=== PATIENT | female | born 2000 | race Two or more races ===

== ENCOUNTER 2021-10-21 15:31 | Emergency (ER) | payer OTHER, SELFPAY ==
[2021-10-21 15:34] VITALS: BP 127/87; PULSE 93; RESP 14; TEMP 36.6; O2SAT 98; BMI 23.1
--- NOTE | 2021-10-21 15:45 | EX.ED.UPPERE ---
HPI History of Present Illness Chief Complaint: Upper Extremity Injury Narrative Narrative: 21-year-old female presenting with right shoulder and right elbow pain. She states she was going through a door at work while carrying some equipment and injured her right shoulder and elbow. She does not remember falling on it. She states that she is now having trouble extending and flexing her fingers. She denies any hand pain, wrist pain, forearm pain. Patient states that she did not hit her head or lose consciousness but does state that she has a very bad memory most of the time. She states that she has not taken anything for pain and does not want anything. PFSH PFS Medical History no medical history Home Medications NK 10/21/21 [History Last Taken Unknown] Allergy/AdvReac Type Severity Reaction Status Date / Time No Known Allergies Allergy Verified 10/21/21 15:34 Family History no significant family his Social History Smoking Status: Never smoker ROS ROS ED Constitutional Constitutional ED: Denies chills, fever(s) or sweats Eyes Eyes: Denies blurry vision or change in vision ENT ENT ED: Denies ear pain or sore throat Cardiovascular Cardiovascular: Denies chest pain, palpitations or racing heartbeat Respiratory/Chest Respiratory/Chest: Denies cough, dyspnea or sputum Gastrointestinal Gastrointestinal: Denies abdominal pain, constipation, diarrhea, nausea or vomiting Genitourinary Genitourinary ED: Denies dysuria, hematuria or urinary frequency Musculoskeletal Musculoskeletal: Reports other Details: Right shoulder and right elbow pain ; Denies arthralgias Integumentary Denies abscess, Abrasions or rash Neurologic Neurologic: Denies headache(s), paresthesias or weakness Psychiatric Psychiatric: Denies anxiety, depression, suicidal ideation or suicidal thoughts Endocrine Endocrinology: Denies polydipsia or polyuria EXAM Physical Exam Const Vital Signs: 10/21/21 15:34 Temperature 98 F Temperature Source Temporal Pulse Rate 93 Respiratory Rate 14 Blood Pressure 127/87 H Blood Pressure Mean 100 Pulse Ox 98 Oxygen Delivery Method Room Air Positive well nourished General Appearance ED: NAD HEENT Reports moist mucous membranes normocephalic and atraumatic Eyes PERRL and EOMs intact bilaterally Resp normal respiratory effort Cardio regular rate and regular rhythm Extremity Extremity Narrative: Mild over the left to palpation over the right deltoid. No pain in the shoulder girdle. The right shoulder has full range of motion. No pain over the trapezius or the cervical spine. There is tenderness over the right olecranon. No tenderness over the radial head. No significant swelling or deformity. Radial pulse 2+. Brisk cap refill all 5 fingers. When patient's fingers are extended she is able to hold them extended. When they are flexed he is notable to hold them flexed. Neuro oriented x3 and CN's II-XII intact bilaterally Sensorium / Orientation: alert Psych mental status grossly normal Skin Lesions: no lesions Rashes: no rashes MDM MDM MDM Narrative Medical decision making narrative: 21-year-old female presenting with right elbow contusion. I obtained x-rays of the right shoulder and elbow because this is where her pain was and on my interpretation is no acute fracture or subluxation. She declined analgesia in the ER. I will place her in a splint. She can follow-up with occupational health. Patient counseled that although she has never fracture it may take a while for the nerve palsy to heal. Impression: 1. Right shoulder strain 2. Right elbow contusion 3. Right radial nerve palsy Discharge Plan Triage Chief Complaint: Upper Extremity Injury ED Provider: Omari Pugh Dx/Rx/DC Orders Instructions: ED Contusion, Elbow, ED Radial Nerve Palsy Prescriptions: No Action NK RF: 0 Primary Care Provider: Care Physician,No Primary Referrals: Care Physician,No Primary [Primary Care Provider] - Clinic,NOW [NON-STAFF] - 3-5 Days Disposition Disposition: Home, Self Care
--- NOTE | 2021-10-21 16:00 | RAD_ITS ---
STUDY: X-RAY - RIGHT SHOULDER REASON FOR EXAM: Female, 21 years old. pain TECHNIQUE: 2 view(s) of the shoulder. COMPARISON: None. FINDINGS: Normal glenohumeral articulation. Normal acromioclavicular joint. Normal acromion. Normal humeral head and visualized proximal humerus. The soft tissue structures are unremarkable. Normal visualized pulmonary apex. RAD/Shoulder min 2 Views IMPRESSION: Normal x-ray examination of the shoulder. Electronically Signed: Dhaval Ferrell MD at 16:42 EDT ,
--- NOTE | 2021-10-21 16:00 | RAD_ITS ---
STUDY: X-RAY - RIGHT ELBOW REASON FOR EXAM: Female, 21 years old. pain TECHNIQUE: 3 view(s) of the elbow. COMPARISON: None. FINDINGS: Normal visualized humerus, radius and ulna. Normal radiocapitellar and ulnotrochlear articulations. The soft tissue structures are unremarkable. RAD/Elbow min 3 Views IMPRESSION: Normal x-ray examination of the elbow. Electronically Signed: Dhaval Ferrell MD at 16:43 EDT ,
== END 2021-10-21 17:37 | disposition home or self-care (01) ==
PROVIDERS: Emergency Provider Student in an Organized Health Care Education/Training Program; Visit Provider Student in an Organized Health Care Education/Training Program
DX: S46.911A Strain of unspecified muscle, fascia and tendon at shoulder and upper arm level, right arm, initial encounter (principal); S50.01XA Contusion of right elbow, initial encounter; G56.31 Lesion of radial nerve, right upper limb; X58.XXXA Exposure to other specified factors, initial encounter
CPT/HCPCS: 73030; 73080; 99283

== ENCOUNTER 2021-12-05 00:46 | Emergency (ER) | payer OTHER, SELFPAY ==
[2021-12-05 00:47] VITALS: BP 126/78; PULSE 77; RESP 16; TEMP 36.8; O2SAT 100; BMI 24.9
[2021-12-05 01:56] LABS: Absolute Lymphocyte Count 3.53 X10^3/uL (0.83-4.51); Absolute Neutrophil Count 5.7 X10^3/uL (2.0-7.7); Basophil# 0.05 X10^3/uL; Basophil% 0.5 % (0-1); Eosinophil# 0.32 X10^3/uL; Eosinophils% 3.1 % (0-5); Hematocrit 37.2 % (37-47); Hemoglobin 12.5 g/dL (12.0-15.0); Lymphocyte # 3.53 X10^3/ul (0.83-4.51); Lymphocyte % 34.4 % (19-41); Mean Corp Hgb Conc 33.6 g/dL (32-36); Mean Corpuscular Hgb 28.5 pg (27.0-32.0); Mean Corpuscular Volume 84.7 fL (81-99); Mean Platelet Vol. 9.7 fl (6.2-12.0); Monocyte# 0.68 X10^3/uL; Monocyte% 6.6 % (0-10); NRBC Flagged by Analyzer 0 % (0-5); Neutrophil # 5.65 X10^3/uL (2.7-7.7); Neutrophil % 55.2 % (47-70); Platelet Count 304 K/mm3 (150-450); RBC Distribution Width CV 12.8 % (11.6-14.6); RBC Distribution Width SD 39.3 fl (35.1-43.9); Red Blood Count 4.39 M/mm3 (4.2-5.4); White Blood Count 10.3 K/mm3 (4.4-11.0)
--- NOTE | 2021-12-05 01:56 | RAD_ITS ---
STUDY: X-RAY CHEST REASON FOR EXAM: Female, 21 years old. cough TECHNIQUE: AP portable. 1:51 AM. COMPARISON: None. FINDINGS: LUNGS: No consolidation. Minimal reticular opacity in the left midlung and right lung base. No pneumothorax. MEDIASTINUM: Unremarkable. CARDIAC SILHOUETTE: Not enlarged. BONES AND SOFT TISSUES: No acute abnormalities. RAD/Chest 1 View (Portable) IMPRESSION: Minimal subsegmental atelectasis versus scarring bilaterally. No infiltrates. Electronically Signed: Tamiko Cartagena MD at 2:14 EDT ,
[2021-12-05 02:11] LABS: D-Dimer Quantitative (DVT/PE) < 0.27 FEU/ug/m (0.27-0.49)
[2021-12-05 02:12] LABS: Anion Gap 7 (5-15); BUN 15 mg/dL (7-18); Calcium,Total 9.1 mg/dL (8.5-10.1); Chloride 109 mmol/L (98-107); Creatinine, Serum 0.75 mg/dL (0.55-1.02); EST Glomerular Filtration Rate 105 mL/min (>60); Est Glom Filt Rate - Afr Amer 126 mL/min (>60); Estimated Creatinine Clearance 105.59 ml/min; Glucose 97 mg/dL (74-106); Magnesium 2.2 mg/dL (1.6-2.6); Potassium 3.8 mmol/L (3.5-5.1); Sodium Level 139 mmol/L (136-145)
--- NOTE | 2021-12-05 02:45 | EX.ED.DYSGE1 ---
HPI History of Present Illness Chief Complaint: General Illness Narrative Narrative: Patient is a 21-year-old female who states she was diagnosed with COVID about 1 week ago. She states she took the 5-day course of Plaxovid. She states that despite that she still having congestion and cough and intermittent bouts of shortness of breath and secondary to this comes in for evaluation. PFSH PFS Home Medications NK 10/21/21 [History Last Taken Unknown] Allergy/AdvReac Type Severity Reaction Status Date / Time No Known Allergies Allergy Verified 12/05/21 00:51 Social History Smoking Status: Never smoker ROS ROS ED Constitutional Constitutional ED: Denies chills or fever(s) ENT ENT ED: Reports rhinorrhea; Denies sore throat Cardiovascular Cardiovascular: Denies chest pain Respiratory/Chest Respiratory/Chest: Reports cough and dyspnea Gastrointestinal Gastrointestinal: Reports vomiting; Denies abdominal pain, diarrhea or nausea Genitourinary Genitourinary ED: Denies dysuria Musculoskeletal Musculoskeletal: Reports myalgias Integumentary Denies rash Neurologic Neurologic: Denies headache(s) Hematologic/Lymphatic Hematologic/Lymphatic: Denies easy bleeding or easy bruising EXAM Physical Exam Const Vital Signs: 12/05/21 00:47 12/05/21 02:17 12/05/21 03:01 Temperature 98.2 F Temperature Source Temporal Pulse Rate 77 Respiratory Rate 16 Respiratory Effort Non-Labored Respiratory Pattern Normal Blood Pressure 126/78 H 137/73 H Blood Pressure Mean 94 Pulse Ox 100 Oxygen Delivery Method Room Air Positive well nourished and well developed General Appearance ED: well developed HEENT Reports moist mucous membranes HEENT Narrative: Cobblestoning the posterior pharynx consistent with sinus drainage but no airway edema or compromise Eyes PERRL and EOMs intact bilaterally Neck supple Neck Narrative: No crepitus noted. Anterior cervical lymphadenopathy present Chest Wall palpation of chest normal Resp normal respiratory effort Resp Narrative: Breath sounds are slight diminished throughout with faint expiratory wheeze in the bilateral lobes but no nasal flaring retractions tachypnea or accessory muscle use Cardio regular rate and regular rhythm GI normal to inspection, nondistended, normoactive bowel sounds, non-tender and non-distended Auscultation: normoactive bowel sounds Palpation: soft Extremity normal to inspection Extremity Narrative: No asymmetric edema no pitting edema negative Homans' sign bilaterally Neuro oriented x3 and CN's II-XII intact bilaterally Sensorium / Orientation: alert Psych mental status grossly normal Skin no rashes or lesions noted MDM MDM MDM Narrative Medical decision making narrative: Patient presented to the ER in no acute respiratory distress satting 100% on room air. Because of her recent diagnosis of COVID and persistent symptoms I did elect to perform a basic cardiac work-up with chest x-ray. Chest x-ray revealed no acute infiltrate and the blood work revealed no clinically significant findings. On reevaluation she is resting comfortably her maintains 100% on room air. Therefore she has no signs of respiratory distress and no signs of secondary infection on top of COVID there is no need for admission and she is safe for discharge Lab Data Attestation: I reviewed the patient's lab results. Labs: Laboratory Results - last 24 hr 12/05/21 12/05/21 12/05/21 01:50 01:50 01:50 WBC 10.3 RBC 4.39 Hgb 12.5 Hct 37.2 MCV 84.7 MCH 28.5 MCHC 33.6 RDW Std Deviation 39.3 RDW Coeff of Max 12.8 Plt Count 304 MPV 9.7 Immature Gran % (Auto) 0.200 Neut % (Auto) 55.2 Lymph % (Auto) 34.4 [place] % (Auto) 6.6 Eos % (Auto) 3.1 Baso % (Auto) 0.5 Absolute Neuts (auto) 5.7 Absolute Lymphs (auto) 3.53 Nucleated RBC % 0 D-Dimer Quant (PE/DVT) < 0.27 L Sodium 139 Potassium 3.8 Chloride 109 H Carbon Dioxide 23.0 Anion Gap 7 BUN 15 Creatinine 0.75 Estim Creat Clear Calc 105.59 Est GFR (MDRD) Af Amer 126 Est GFR (MDRD) Non-Af 105 BUN/Creatinine Ratio 20.0 Glucose 97 Calcium 9.1 Magnesium 2.2 Radiography Diagnostic Testing: Clinical Impression(s) from Imaging Studies Chest X-Ray 12/05/21 01:56 IMPRESSION: Minimal subsegmental atelectasis versus scarring bilaterally. No infiltrates. Electronically Signed: Tamiko Cartagena MD at 2:14 EDT , Chest x-ray as interpreted by the emergency medicine physician reveals no acute infiltrate pneumothorax or pleural effusion Discharge Plan Triage Chief Complaint: General Illness ED Provider: Jaime Baker Dx/Rx/DC Orders Clinical Impression: COVID-19 Instructions: Coronavirus Disease 2019 (COVID-19): Caring for Yourself or Others Prescriptions: No Action NK Stand Alone Forms: ED Work / School Excuse Primary Care Provider: Care Physician,No Primary Referrals: Monserrat Gray MD [Med Staff - [employer]ination Building Inspector] - 10-14 Days if not better Care Physician,No Primary [Primary Care Provider] - Disposition Disposition: Home, Self Care Discharge Date/Time: 12/05/21 03:05
[2021-12-05 03:01] VITALS: BP 137/73
== END 2021-12-05 03:05 | disposition home or self-care (01) ==
PROVIDERS: Emergency Provider Emergency Medicine; Visit Provider Emergency Medicine
DX: U07.1 COVID-19 (principal)
CPT/HCPCS: 71045; 80048; 83735; 85025; 85379; 99282